=== PATIENT | female | born 1950 | race Two or more races ===

== ENCOUNTER → 2023-08-17 08:10 | Outpatient (REF) | payer BC, SELFPAY | LOC: PAVMRI 08:10 | PROVIDERS: ATTENDING PHYSICIAN Internal Medicine Cardiovascular Disease; FAMILY PHYSICIAN Psychiatry & Neurology Psychiatry | DX: I42.2 Other hypertrophic cardiomyopathy (principal) | CPT/HCPCS: 75561; 75565; A9585 ==

== ENCOUNTER 2024-07-29 06:25 | Day surgery (SDC) | payer OTHER, SELFPAY ==
--- NOTE | 2024-07-17 14:40 | VNURNOTE ---
Patient is scheduled for an elective R LORI on 07/29/24- she is a same day patient with Dr Chu. Spoke with patient prior to surgery. Introduced role of [facility] Liaison. Patient reports that she lives alone in a condo on the ground floor.
0 LIZ.
She has a hip kit, cane, shower seat. She will fern picker her rolling walker the end of this week 07/19.
PCP is Dr Stephanie Atwood.
Discussed [facility] joint protocol and post surgical plans.
Reviewed that she will have [facility] services initially and will then start outpatient PT.
Patient selects [facility] for home care needs and will go to [facility] for outpatient PT. She will call to schedule outpt PT for 08/01.
Patient is in agreement with plan and states that her daughter will be home with her. Advised to bring RW with her day of surgery. [facility] referral placed in [facility].
Plan: [facility] per [facility] joint protocol 07/29 then outpt PT on 08/01
[2024-07-19 11:09] LABS: Hematocrit 45.4 % (37.0-47.0); Hemoglobin 15.3 g/dL (12.0-16.0); Mean Corp Hgb Conc. 33.7 g/dL (33.0-37.0); Mean Corpuscular Hgb 31.4 pg (27.0-31.0); Mean Corpuscular Volume 93.2 fL (81.0-99.0); Mean Platelet Volume 10.1 fL (7.4-10.4); Platelet Count 287 10^3/uL (130-400); Red Blood Cell Count 4.87 10^6/uL (4.20-5.40); Red Cell Dist. Width 13.2 % (11.5-14.5); White Blood Cell Count 10.4 10^3/uL (4.8-10.8)
[2024-07-19 11:37] LABS: ALT (SGPT) 24 U/L (0-35); AST (SGOT) 34 U/L (14-36); Albumin 4.7 g/dl (3.5-5.0); Alkaline Phosphatase 107 U/L (38-126); Blood Urea Nitrogen 20 mg/dl (7-17); Calcium 10.5 mg/dl (8.4-10.2); Carbon Dioxide 24 mmol/L (22-30); Chloride 98 mmol/L (98-107); Glucose 102 mg/dl (70-99); Potassium 4.4 mmol/L (3.5-5.1); Sodium 137 mmol/L (135-145); Total Bilirubin 1.4 mg/dl (0.2-1.3); Total Protein 7.5 g/dl (6.3-8.2); eGFR 59.86
[2024-07-19 14:13] VITALS: BMI 25.4
[2024-07-19 14:34] LABS: Glycohemoglobin (HgbA1c) 5.9 % (4.0-5.6)
[2024-07-22 14:47] VITALS: BMI 25.4
--- NOTE | 2024-07-26 09:18 | W.PREADMORTH ---
Ortho Preadmission Testing
-
Pt reportedly has a h/o CKD stage 3 per her primary care clearance.
Her BUN/Cr, however, on pre-op testing was relatively stable.
We will order Celebrex daily as needed for breakthrough pain upon d/c.
Can continue with Tylenol ATC, Decadron BID for 3 days post-op, and Oxycodone q6hprn as planned.
[2024-07-29] VITALS (17 sets, daily range): BP systolic 84–143; BP diastolic 50–81; PULSE 85; O2SAT 96
[2024-07-29] MEDS: CELEBREX 200 MG PO (07:22)
[2024-07-29] MEDS: TYLENOL 650 MG PO (07:22)
[2024-07-29] MEDS: VANCOCIN 200 IV (07:31)
--- NOTE | 2024-07-29 07:33 | W.DS.TRANS ---
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
-
Discharge Instructions:
Sleep Apnea Risk Low
Discharge Diagnosis/Procedures R LORI 07/29/24
Diet Diabetic, Carb Controlled
Activity With Walker
Driving Restrictions No driving
Bathing Restrictions OK to Shower
Other Services PT
Instructions:
Stand-Alone Forms: SDS Total Hip and Knee D/C
Changes to Home Medications: Yes
Discharge Medications:
DC Medications w/original date entered in [facility]
celecoxib 200 mg capsule 200 mg PO BID 05/19/20
duloxetine 60 mg capsule,delayed release 60 mg PO DAILY 05/19/20
biotin 10,000 mcg chewable tablet (Hair, Skin and Nails (biotin)) 10,000 mcg PO DAILY 07/17/24
coenzyme Q10 100 mg capsule (CoQ-10) 100 mg PO HS 07/17/24
nebivolol 5 mg tablet (Bystolic) 5 mg PO QPM 07/17/24
pravastatin 40 mg tablet 40 mg PO HS 07/17/24
triamterene 37.5 mg-hydrochlorothiazide 25 mg capsule 1 cap PO DAILY 07/17/24
amoxicillin 500 mg tablet 2,000 mg PO DAILYPRN PRN prior to dental procedures 07/19/24
dexamethasone 4 mg tablet 4 mg PO BID Anti-inflammatory #7 tabs 07/19/24
famotidine 20 mg tablet (Pepcid) 20 mg PO HS #30 tabs 07/19/24
mupirocin 2 % topical ointment 1 applic intranasal BID #1 tube 07/19/24
ondansetron HCl 4 mg tablet 4 mg PO Q6H PRN nausea and vomiting #30 tabs 07/19/24
oxycodone 5 mg tablet 5 - 10 mg (1 - 2 x 5 mg) PO Q6H PRN moderate-severe pain #30 tabs 07/19/24
acetaminophen 325 mg tablet (Tylenol) 650 mg (2 x 325 mg) PO QID #1 tab 07/29/24
aspirin 325 mg tablet 325 mg PO DAILY blood clot prevention #1 tab 07/29/24
docusate sodium 100 mg capsule (Colace) 100 mg PO BID stool softner #1 cap 07/29/24
magnesium hydroxide 400 mg/5 mL oral suspension (Milk of Magnesia) 30 ml PO HS PRN Constipation #1 mL 07/29/24
sennosides 8.6 mg tablet (Senokot) 17.2 mg (2 x 8.6 mg) PO BID laxative #2 tabs 07/29/24
Home Medication Changes
dexamethasone 4 mg tablet 4 mg PO BID Anti-inflammatory #7 tabs 07/19/24
famotidine 20 mg tablet (Pepcid) 20 mg PO HS #30 tabs 07/19/24
mupirocin 2 % topical ointment 1 applic intranasal BID #1 tube 07/19/24
ondansetron HCl 4 mg tablet 4 mg PO Q6H PRN nausea and vomiting #30 tabs 07/19/24
oxycodone 5 mg tablet 5 - 10 mg (1 - 2 x 5 mg) PO Q6H PRN moderate-severe pain #30 tabs 07/19/24
acetaminophen 325 mg tablet (Tylenol) 650 mg (2 x 325 mg) PO QID #1 tab 07/29/24
aspirin 325 mg tablet 325 mg PO DAILY blood clot prevention #1 tab 07/29/24
docusate sodium 100 mg capsule (Colace) 100 mg PO BID stool softner #1 cap 07/29/24
magnesium hydroxide 400 mg/5 mL oral suspension (Milk of Magnesia) 30 ml PO HS PRN Constipation #1 mL 07/29/24
sennosides 8.6 mg tablet (Senokot) 17.2 mg (2 x 8.6 mg) PO BID laxative #2 tabs 07/29/24
Pending Results: No
[2024-07-29] MEDS: NORMOSOL-R/PLASMALYTE-A 1000 IV (07:35)
[2024-07-29] MEDS: ANCEF 5 IV (12:37)
== END 2024-07-29 13:25 | disposition home or self-care (01) ==
LOC: SDS 06:25
PROVIDERS: ATTENDING PHYSICIAN Specialist; FAMILY PHYSICIAN Family Medicine; OTHER PHYSICIAN Physician Assistant
DX: M16.11 Unilateral primary osteoarthritis, right hip (principal); M81.0 Age-related osteoporosis without current pathological fracture; Z86.14 Personal history of Methicillin resistant Staphylococcus aureus infection
CPT/HCPCS: 27130; 36415; 73502; 80053; 83036; 85027; 87070; 97162; 97530; C1713; C1776

== ENCOUNTER → 2024-10-23 10:38 | Outpatient (REF) | payer OTHER, SELFPAY | LOC: RAD 10:38 | PROVIDERS: ATTENDING PHYSICIAN Physician Assistant Surgical; FAMILY PHYSICIAN Family Medicine | DX: M25.561 Pain in right knee (principal) | CPT/HCPCS: 78315; A9503 ==